=== PATIENT | male | born 1940 | race Caucasian/White ===

== ENCOUNTER → 2023-04-20 | Outpatient (CLI) | payer OTHER, SELFPAY ==
--- NOTE | 2023-04-20 10:13 | ECHOD_ITS ---
Reason For Study: Aortic stenosis Procedure This was a 2D Doppler, Color Flow transthoracic echocardiogram. Exam performed in department. Left Ventricle Normal LV size. Mild global left ventricular systolic dysfunction. Stage 1 diastolic dysfunction. The estimated ejection fraction is 45 %. There is mild global hypokinesis of the left ventricle. Right Ventricle Normal RV size. Normal systolic function. Atria Normal left atrium. Normal right atrium. Mitral Valve Normal mitral valve. Tricuspid Valve Normal tricuspid valve. Mild tricuspid valve insufficiency. Pulmonary artery systolic pressure is 19 mmHg. Aortic Valve Trisinus/trileaflet aortic valve. Moderate focal aortic valve thickening. Peak aortic valve gradient 24 mmHg. Mean aortic valve gradient 14 mmHg. Mild (1+) aortic valve insufficiency. Pulmonic Valve Normal pulmonic valve. Great Vessels Normal aortic root. The pulmonary artery is normal size. Normal inferior vena cava. Pericardium/Pleural No pericardial effusion. MMode/2D Measurements & Calculations LVIDd: 4.6 cm IVSd: 1.1 cm LVOT diam: 2.3 cm LVIDs: 3.6 cm LVPWd: 0.95 cm LVOT area: 4.0 cm2 RVDd: 3.5 cm FS: 21.4 % Ao root diam: 3.2 cm LAV(MOD-bp): 50.3 ml LVAd ap4: 33.1 cm2 LAV(MOD-bp) Indexed: 26.6 ml/m2 LVLd ap4: 8.8 cm LAV(MOD-sp2): 48.9 ml EDV(MOD-sp4): 103.6 ml LAV(MOD-sp4): 46.2 ml EDV(sp4-el): 106.2 ml LVAs ap4: 20.5 cm2 LVLs ap4: 7.7 cm ESV(MOD-sp4): 45.2 ml ESV(sp4-el): 46.7 ml EF(MOD-sp4): 56.4 % EF(sp4-el): 56.1 % LVAd ap2: 29.5 cm2 SV(MOD-sp4): 58.4 ml SV(MOD-sp2): 54.3 ml LVLd ap2: 8.2 cm EDV(MOD-sp2): 89.8 ml EDV(sp2-el): 90.0 ml LVAs ap2: 17.1 cm2 LVLs ap2: 7.3 cm ESV(MOD-sp2): 35.6 ml ESV(sp2-el): 34.3 ml EF(MOD-sp2): 60.4 % SV(sp4-el): 59.5 ml LA dimension(2D): 4.1 cm LA A4 area: 17.8 cm2 RA A4 area: 12.8 cm2 TAPSE: 1.6 cm Time Measurements MV dec time: 0.32 sec Doppler Measurements & Calculations MV E max sameer: 50.4 cm/sec Lat Peak E' Sameer: 7.2 cm/sec Med Peak E' Sameer: 4.5 cm/sec MV A max sameer: 89.8 cm/sec E/E' lat: 7.0 E/E' med: 11.3 MV E/A: 0.56 Ao V2 max: 243.9 cm/sec AI max sameer: 394.6 cm/sec MV dec slope: 155.2 cm/sec2 Ao max P.9 mmHg AI max P.4 mmHg Ao V2 mean: 175.1 cm/sec Ao mean P.6 mmHg AI dec slope: 150.4 cm/sec2 Ao V2 VTI: 48.2 cm AI P1/2t: 768.4 msec AV (velocity ratio): 0.31 NEHAL(I,D): 1.2 cm2 NEHAL(V,D): 1.3 cm2 LV V1 max: 77.1 cm/sec SV(LVOT): 59.7 ml PA V2 max: 153.0 cm/sec LV V1 max P.4 mmHg PA V2 mean: 95.1 cm/sec LV V1 mean P.2 mmHg LV V1 mean: 52.2 cm/sec LV V1 VTI: 14.9 cm TR max sameer: 194.2 cm/sec TR max P.1 mmHg ECHO/Echo Complete Interpretation Summary Normal LV size. Mild global left ventricular systolic dysfunction. Stage 1 diastolic dysfunction. Moderate focal aortic valve thickening. There is mild global hypokinesis of the left ventricle. The estimated ejection fraction is 45 %. Mean aortic valve gradient 14 mmHg. Ordering Physician: Adán Lopez Referring Physician: Adán Lopez Performed By: Chiquita Joshi RDCS
== END | disposition home or self-care (01) ==
PROVIDERS: PCP Internal Medicine; Referring Provider Chiropractor; Visit Provider Chiropractor
DX: I35.0 Nonrheumatic aortic (valve) stenosis (principal)
CPT/HCPCS: 93306